=== PATIENT | male | born 1975 | race Caucasian/White ===

== ENCOUNTER 2017-08-05 18:59 | Inpatient (IN) | payer OTHER ==
[~2017-08-05] VITALS: Ht 177.8 cm; Wt 82.6 kg
[2017-08-05 20:30] VITALS: BP 142/105
[2017-08-05] MEDS ORDERED: LORAZEPAM 2 MG/1 ML VIAL IM PRN (21:45)
[2017-08-05] MEDS ORDERED: ONDANSETRON ODT 4 MG TAB.RAPDIS SL PRN (21:45)
[2017-08-05] MEDS ORDERED: MAG HYDROX/AL HYDROX/SIMETH 30 ML LIQUID UDC PO PRN (21:45)
[2017-08-05] MEDS ORDERED: MAGNESIUM HYDROXIDE 30 ML LIQUID UDC PO PRN (21:45)
[2017-08-05] MEDS ORDERED: ACETAMINOPHEN 325 MG TABLET PO PRN (21:45)
[2017-08-05] MEDS ORDERED: LOPERAMIDE HCL 2 MG CAPSULE PO PRN ×2 (21:45)
[2017-08-05] MEDS ORDERED: DICYCLOMINE HCL 20 MG TABLET PO PRN (21:45)
[2017-08-05] MEDS ORDERED: LORAZEPAM 1 MG TABLET PO PRN ×2 (21:45)
[2017-08-05] MEDS ORDERED: ONDANSETRON 4 MG/2 ML VIAL IM PRN (21:45)
[2017-08-05] MEDS ORDERED: MIRALAX 17 GM POWD.PACK PO PRN (21:45)
[2017-08-05 21:56] LABS: BASOPHILS % (AUTO) 0.4 % (0.0-2.0); EOSINOPHILS # (AUTO) 0.1 K/uL (0.0-0.7); EOSINOPHILS % (AUTO) 1.1 % (0.0-7.0); HEMATOCRIT 42.1 % (36.7-47.1); HEMOGLOBIN 14.5 g/dL (12.5-16.3); LYMPHOCYTES # (AUTO) 2.5 K/uL (20.0-40.0); LYMPHOCYTES % (AUTO) 25.6 % (20.5-51.5); MEAN CORPUSCULAR HEMOGLOBIN 34.3 uug (23.8-33.4); MEAN CORPUSCULAR HGB CONC 35 g/dL (32.5-36.3); MEAN CORPUSCULAR VOLUME 99.5 fL (73.0-96.2); MONOCYTES # (AUTO) 0.9 K/uL (2.0-10.0); MONOCYTES % (AUTO) 9.5 % (0.0-11.0); NEUTROPHILS # (AUTO) 6.2 K/uL (1.8-8.9); NEUTROPHILS % (AUTO) 63.4 % (38.5-71.5); PLATELET COUNT (AUTO) 334 K/uL (152-348); RED BLOOD CELL COUNT(AUTO) 4.23 MIL/uL (4.06-5.63); WHITE BLOOD COUNT (AUTO) 9.7 K/uL (3.6-10.2)
[2017-08-05 22:00] VITALS: BP 145/101
[2017-08-05] MEDS ORDERED: LORAZEPAM 1 MG TABLET PO ONE (22:00)
[2017-08-05 22:10] LABS: ETHANOL < 3 MG/DL (0-0)
[2017-08-05] MEDS: CLONIDINE HCL 0.1 MG TABLET PO PRN (22:10)
[2017-08-05 22:11] LABS: ALANINE AMINOTRANSFERASE 22 U/L (16-63); ALKALINE PHOSPHATASE 46 U/L (50-136); AMYLASE 65 U/L (25-115); ASPARTATE AMINOTRANSFERASE 22 U/L (15-37); CARBON DIOXIDE 32 mmol/L (21-32); CHLORIDE 103 mmol/L (98-107); GLUCOSE 97 mg/dL (74-106); LIPASE 513 U/L (73-393); MAGNESIUM 2.4 mg/dL (1.8-2.4); POTASSIUM 3.7 mmol/L (3.5-5.1); TOTAL PROTEIN, SERUM 8.2 g/dL (6.4-8.2); UREA NITROGEN, BLOOD 8 mg/dL (7-18)
[2017-08-05 22:22] LABS: THYROID STIMULATING HORMONE 2.028 mIU/mL (0.358-3.740)
[2017-08-06 00:15] LABS: *AMPHETAMINE, URINE NEGATIVE (NEGATIVE); *BARBITURATE, URINE NEGATIVE (NEGATIVE); *CANNABINOID, URINE POSITIVE (NEGATIVE); *COCCAINE, URINE NEGATIVE (NEGATIVE); *OPIATE, URINE NEGATIVE (NEGATIVE); *PHENCYCLIDINE SCREEN,URINE NEGATIVE (NEGATIVE)
[2017-08-06] MEDS ORDERED: TIZA4TAB4 PO (00:59)
[2017-08-06] MEDS ORDERED: NAPH30DR5 OP (00:59)
[2017-08-06] MEDS ORDERED: HYDR-548 PO (00:59)
[2017-08-06] MEDS ORDERED: DIVA500T54 PO (00:59)
[2017-08-06] MEDS ORDERED: ALPR1TAB7 PO (00:59)
[2017-08-06] MEDS ORDERED: RANI150T8 PO (01:00)
[2017-08-06 01:20] VITALS: BP 145/101
[2017-08-06] MEDS: IBUPROFEN 400 MG TABLET PO PRN (01:20)
[2017-08-06] MEDS: diphenhydrAMINE 50 MG CAPSULE PO PRN ×2 (01:21→21:51)
[2017-08-06 04:00] VITALS: BP 118/79
[2017-08-06 08:00] VITALS: BP 139/81
[2017-08-06] MEDS ORDERED: [UNRECOGNIZED DRUG - OTHER] EACHEYE PRN (08:30)
[2017-08-06] MEDS: MULTIVITAMINS,THERAPEUTIC TABLET PO SCH (08:55)
[2017-08-06] MEDS: LORAZEPAM 1 MG TABLET PO SCH ×4 (08:55→21:51)
[2017-08-06] MEDS: GABAPENTIN 300 MG CAPSULE PO SCH ×3 (08:55→17:32)
[2017-08-06] MEDS ORDERED: TUBERCULIN,PURIF.PROT.DERIV. 5 TU/0.1 ML TEST ID ONE (09:00)
[2017-08-06] MEDS ORDERED: PATIENT MAY USE OWN MED- MD OK PO SCH (09:00)
[2017-08-06] MEDS: FAMOTIDINE 20 MG TABLET PO SCH ×2 (10:15→21:51)
[2017-08-06] MEDS: DIVALPROEX ER 500 MG TAB.SR.24H PO SCH ×2 (10:26→17:32)
[2017-08-06] MEDS ORDERED: METHOCARBAMOL 750 MG TABLET PO PRN (10:45)
[2017-08-06 12:00] VITALS: BP 128/85
[2017-08-06 16:00] VITALS: BP 137/89
[2017-08-06 20:00] VITALS: BP 149/85
[2017-08-07] VITALS: BP 128/76
[2017-08-07 07:38] LABS: BILIRUBIN,DIRECT 0.2 mg/dL (0.0-0.2); BILIRUBIN,TOTAL 0.8 mg/dL (0.2-1.0); CREATININE 1.1 mg/dL (0.6-1.3); POTASSIUM 3.9 mmol/L (3.5-5.1); TOTAL PROTEIN, SERUM 7.2 g/dL (6.4-8.2)
[2017-08-07 08:00] VITALS: BP 140/88
[2017-08-07] MEDS: GABAPENTIN 300 MG CAPSULE PO SCH ×3 (08:48→16:39)
[2017-08-07] MEDS: MULTIVITAMINS,THERAPEUTIC TABLET PO SCH (08:48)
[2017-08-07] MEDS: DIVALPROEX ER 500 MG TAB.SR.24H PO SCH ×2 (08:48→16:39)
[2017-08-07] MEDS: FAMOTIDINE 20 MG TABLET PO SCH ×2 (08:48→21:57)
[2017-08-07] MEDS: LORAZEPAM 1 MG TABLET PO SCH ×3 (08:49→21:58)
[2017-08-07 09:06] LABS: HEPATITIS B SURFACE AG Negative (Negative)
[2017-08-07] MEDS ORDERED: DIVALPROEX 500 MG TABLET.DR PO ONE (10:15)
[2017-08-07] MEDS ORDERED: TRAZODONE 100 MG TABLET PO PRN (11:00)
[2017-08-07] MEDS: CLONIDINE HCL 0.1 MG TABLET PO PRN (14:00)
[2017-08-07 14:05] VITALS: BP 152/101
[2017-08-07 16:30] VITALS: BP 134/85
[2017-08-07] MEDS: IBUPROFEN 400 MG TABLET PO PRN (16:43)
[2017-08-07 20:00] VITALS: BP 133/80
[2017-08-08] VITALS (8 sets, daily range): BP systolic 120–146; BP diastolic 71–101
[2017-08-08] MEDS: FAMOTIDINE 20 MG TABLET PO SCH ×2 (09:00→21:00)
[2017-08-08] MEDS: DIVALPROEX ER 500 MG TAB.SR.24H PO SCH ×2 (10:01→17:55)
[2017-08-08] MEDS: GABAPENTIN 300 MG CAPSULE PO SCH ×3 (10:01→16:48)
[2017-08-08] MEDS: MULTIVITAMINS,THERAPEUTIC TABLET PO SCH (10:01)
[2017-08-08] MEDS: LORAZEPAM 1 MG TABLET PO SCH ×4 (10:01→21:52)
[2017-08-08] MEDS ORDERED: TRAZODONE 100 MG TABLET PO PRN (17:15)
[2017-08-08] MEDS: CLONIDINE HCL 0.1 MG TABLET PO PRN (21:52)
[2017-08-08] MEDS: TRAZODONE 100 MG TABLET PO PRN (21:52)
[2017-08-09 08:00] VITALS: BP 111/64
[2017-08-09] MEDS: MULTIVITAMINS,THERAPEUTIC TABLET PO SCH (08:32)
[2017-08-09] MEDS: FAMOTIDINE 20 MG TABLET PO SCH ×3 (08:32→21:00)
[2017-08-09] MEDS: DIVALPROEX ER 500 MG TAB.SR.24H PO SCH ×2 (08:32→17:03)
[2017-08-09] MEDS: GABAPENTIN 300 MG CAPSULE PO SCH ×3 (08:33→21:34)
[2017-08-09] MEDS: LORAZEPAM 1 MG TABLET PO SCH ×2 (08:33→14:20)
[2017-08-09 12:00] VITALS: BP 136/92
[2017-08-09] MEDS ORDERED: BACLOFEN 10 MG TABLET PO SCH (13:00)
[2017-08-09] MEDS: LIDOCAINE 5% PATCH TD SCH (13:16)
[2017-08-09 16:00] VITALS: BP 135/93
[2017-08-09 20:00] VITALS: BP 140/97
[2017-08-09] MEDS ORDERED: LORAZEPAM 1 MG TABLET PO SCH (21:00)
[2017-08-09] MEDS: BACLOFEN 10 MG TABLET PO SCH (21:35)
[2017-08-09] MEDS: TRAZODONE 100 MG TABLET PO PRN (21:35)
[2017-08-10 08:00] VITALS: BP 132/82
[2017-08-10] MEDS: GABAPENTIN 300 MG CAPSULE PO SCH ×3 (08:12→21:00)
[2017-08-10] MEDS: DIVALPROEX ER 500 MG TAB.SR.24H PO SCH ×2 (08:12→16:40)
[2017-08-10] MEDS: BACLOFEN 10 MG TABLET PO SCH ×2 (08:12→22:28)
[2017-08-10] MEDS: MULTIVITAMINS,THERAPEUTIC TABLET PO SCH (08:13)
[2017-08-10] MEDS: LIDOCAINE 5% PATCH TD SCH (08:13)
[2017-08-10] MEDS: LORAZEPAM 1 MG TABLET PO SCH ×2 (08:13→22:28)
[2017-08-10] MEDS: FAMOTIDINE 20 MG TABLET PO SCH ×2 (08:14→21:00)
[2017-08-10 12:00] VITALS: BP 132/96
[2017-08-10 16:00] VITALS: BP 134/79
[2017-08-10] MEDS: IBUPROFEN 400 MG TABLET PO PRN ×2 (16:40→22:32)
[2017-08-10 20:15] VITALS: BP 134/79
[2017-08-10] MEDS: TRAZODONE 100 MG TABLET PO PRN (23:43)
[2017-08-11 00:50] VITALS: BP 140/93
[2017-08-11 04:51] VITALS: BP 134/91
[2017-08-11 08:00] VITALS: BP 123/80
[2017-08-11] MEDS: DIVALPROEX ER 500 MG TAB.SR.24H PO SCH ×2 (09:00→17:14)
[2017-08-11] MEDS: BACLOFEN 10 MG TABLET PO SCH ×2 (09:00→20:52)
[2017-08-11] MEDS: FAMOTIDINE 20 MG TABLET PO SCH ×2 (09:00→20:53)
[2017-08-11] MEDS: GABAPENTIN 300 MG CAPSULE PO SCH ×3 (09:00→20:52)
[2017-08-11] MEDS: MULTIVITAMINS,THERAPEUTIC TABLET PO SCH (09:00)
[2017-08-11] MEDS: LIDOCAINE 5% PATCH TD SCH (09:00)
[2017-08-11] MEDS ORDERED: LORAZEPAM 1 MG TABLET PO SCH (09:00)
[2017-08-11 12:00] VITALS: BP 144/99
[2017-08-11] MEDS: IBUPROFEN 400 MG TABLET PO PRN (15:26)
[2017-08-11 16:00] VITALS: BP 143/98
[2017-08-11] MEDS ORDERED: NICOTINE POLACRILEX 4 MG GUM-PK OF TEN BC PRN (18:15)
[2017-08-11] MEDS ORDERED: NICOTINE 14 MG/24HR PATCH TD PRN (18:15)
[2017-08-11 20:00] VITALS: BP 153/94
[2017-08-11] MEDS ORDERED: METH-406 PO (20:44)
[2017-08-11] MEDS ORDERED: NICO4GUM38 BC (20:44)
[2017-08-11] MEDS ORDERED: TRAZ-147 PO (20:44)
[2017-08-11] MEDS ORDERED: GABA-534 PO ×2 (20:44)
[2017-08-11] MEDS ORDERED: LIDO30AD10 TD (20:44)
[2017-08-11] MEDS ORDERED: IBUP-1953 PO (20:44)
[2017-08-11] MEDS ORDERED: CLON0.1T14 PO (20:44)
[2017-08-11] MEDS ORDERED: DIVA500T4 PO (20:44)
[2017-08-11] MEDS: TRAZODONE 100 MG TABLET PO PRN (22:23)
[2017-08-12 08:00] VITALS: BP 135/89
[2017-08-12] MEDS: DIVALPROEX ER 500 MG TAB.SR.24H PO SCH (09:08)
[2017-08-12] MEDS: FAMOTIDINE 20 MG TABLET PO SCH (09:08)
[2017-08-12] MEDS: MULTIVITAMINS,THERAPEUTIC TABLET PO SCH (09:08)
[2017-08-12] MEDS: GABAPENTIN 300 MG CAPSULE PO SCH (09:08)
[2017-08-12] MEDS: BACLOFEN 10 MG TABLET PO SCH (09:08)
[2017-08-12] MEDS: LIDOCAINE 5% PATCH TD SCH (09:09)
== END 2017-08-12 09:40 | disposition other institution (70) | DRG 895 ==
LOC: SRC 19:37
PROVIDERS: ADMIT Internal Medicine; ATTEND Internal Medicine
PROC: HZ2ZZZZ Detoxification Services for Substance Abuse Treatment (ICD-10-PCS; principal; 2017-08-05)
PROC: HZ41ZZZ Group Counseling for Substance Abuse Treatment, Behavioral (ICD-10-PCS; 2017-08-06)
PROC: HZ31ZZZ Individual Counseling for Substance Abuse Treatment, Behavioral (ICD-10-PCS; 2017-08-08)
DX: F13.232 Sedative, hypnotic or anxiolytic dependence with withdrawal with perceptual disturbance (principal); G40.409 Other generalized epilepsy and epileptic syndromes, not intractable, without status epilepticus; K21.9 Gastro-esophageal reflux disease without esophagitis; F41.9 Anxiety disorder, unspecified; Z82.49 Family history of ischemic heart disease and other diseases of the circulatory system; Z59.0 Homelessness; F17.210 Nicotine dependence, cigarettes, uncomplicated; Z79.899 Other long term (current) drug therapy; Z59.1 Inadequate housing; G89.29 Other chronic pain; M54.5 Low back pain; T14.90XS Injury, unspecified, sequela; V89.2XXS Person injured in unspecified motor-vehicle accident, traffic, sequela; G47.00 Insomnia, unspecified; F12.90 Cannabis use, unspecified, uncomplicated; I15.9 Secondary hypertension, unspecified
CPT/HCPCS: 36415; 70030-TC; 80164; 80307; 80346; 80349; 83690; 83735; 84443; 85025; 86592; 86705; 86803; 87340; 87806; A4663; G0480; Q0163